=== PATIENT | female | born 1950 | race Caucasian/White ===

== ENCOUNTER 2017-03-28 01:58 | Inpatient (IN) | payer MEDICARE ==
[2017-03-24 08:47] VITALS: BP 136/74
[2017-03-24 09:56] LABS: BASO % 0.4 % (0.0-1.0); EOS # 0.1 10*3/uL (0.0-0.4); EOS % 0.7 % (1.0-4.0); HEMATOCRIT 41.4 % (37.0-47.0); HEMOGLOBIN 13.7 g/dl (12.0-16.0); LYMPH # 1.8 10*3/uL (1.3-4.4); LYMPH % 26.3 % (27.0-41.0); MEAN CELL VOLUME 96.3 fl (81.0-99.0); MEAN CORPUSCULAR HGB 31.9 pg (27.0-31.0); MEAN CORPUSCULAR HGB CONC 33.1 g/dl (33.0-37.0); MEAN PLATELET VOLUME 9.3 fl (9.6-12.3); MONO # 0.5 10*3/uL (0.1-1.0); MONO % 7.7 % (3.0-9.0); NEUT # 4.5 10*3/uL (2.3-7.9); NEUT % 64.6 % (47.0-73.0); PLATELET COUNT AUTOMATED 312 10*3/uL (130-400)
[~2017-03-28] VITALS: Ht 162.5 cm; Wt 76.8 kg
[2017-03-28] VITALS (11 sets, daily range): BP systolic 114–151; BP diastolic 66–83
--- NOTE | ~2017-03-28 | WRIGHTHP ---
[place], [place] PATIENT HISTORY AND PHYSICAL EXAM [id number] UNIT #: [id number] ROOM: DOCTOR: DENNYS BELTRAN MD BIRTHDATE: [birth year] DOS: 03/28/2017 HISTORY OF PRESENT ILLNESS: This is a 66-year-old white female who is a 2, para 1, AB 1, status post tubal ligation, who was seen on 03/14/2017 in kind referral from Dr. Jeffery West for uterine prolapse. The patient does have a number of issues with bowel function in discussing the situation with her, but her urinary function is okay. She over the past 3-4 months states that she has been having significant issues with sitting down and feels like she is squishing something and also something seems to protrude out with the bathroom functions as well. Her exam at that time was consistent with no significant uterine or bladder prolapse, but she had a very prominent large second degree rectocele and enterocele. I reviewed pessary with her and she refused and we also discussed observation. She also refused that and desired surgical correction. The risks, benefits, indications, potential complications and alternatives of an enterocele repair, posterior repair, right sacrospinous fixation and perineoplasty were reviewed with the patient, understanding stated and she did sign a consent. She understands fully that this corrective surgery may or may not improve her bowel function as she had described and complained of to her primary provider as well as myself. PAST MEDICAL HISTORY: Reveals 2 pregnancies, 1 vaginal delivery and 1 spontaneous AB. She states she has never had a colonoscopy. She has had the tubal ligation. Her most recent Pap was negative. She states a history of hypertension, but she states that she is taking no medications per se for this. SOCIAL HISTORY: She does smoke approximately one half to one pack per day. She does drink socially. ALLERGIES: She states an allergy to PENICILLIN and CODEINE. MEDICATIONS: She was taking hydrochlorothiazide, but she is no longer taking this. She does take vitamin D and calcium. REVIEW OF SYSTEMS: Otherwise is stable. FAMILY HISTORY: Reveals her father from an NV and from lung cancer. She states her sister has had an NV. PHYSICAL EXAMINATION: GENERAL: Reveals a pleasant white female. VITAL SIGNS: She is 5 feet and 4 inches, 162 pounds, BMI is 28, oxygen sat is normal and there is no history of sleep apnea. Her blood pressure this time was 130/84. HEENT: Stable. NECK: Stable. LUNGS: Stable. CARDIAC: Stable. BREASTS: Stable. ABDOMEN: Normal. EXTREMITIES: Grossly intact. [place], [place] PATIENT HISTORY AND PHYSICAL EXAM NAME: NINA VOGT UNIT #: [id number] ROOM: DOCTOR: DENNYS BELTRAN MD BIRTHDATE: [birth year] NEUROLOGIC: Grossly intact. GENITOURINARY: The external genitalia normal. Vagina has been described above, as has the cervix. The uterus is not enlarged and anteverted, anteflexed, mobile and nontender. Adnexa were negative. RECTAL: Negative. Stool Hematest negative. ASSESSMENT: The patient with symptomatic second degree rectocele/enterocele. PLAN: The patient will undergo posterior repair, enterocele repair, right sacrospinous fixation and perineoplasty on 03/28/2017. DENNYS BELTRAN MD CM:HISPHYS:PATIENT HISTORY AND PHYSICAL EXAMINATION 32 34 DENNYS BELTRAN MD 03/24/17 1336 interface
--- NOTE | ~2017-03-28 | O ---
[place], [place] OPERATIVE NOTE NAME: NINA VOGT UNIT #: [id number] ROOM: 511 DOCTOR: DENNYS BELTRAN MD BIRTHDATE: [birth year] DOS: 03/28/2017 PREOPERATIVE DIAGNOSES: Symptomatic second degree rectocele and enterocele as well as introital laxity. POSTOPERATIVE DIAGNOSES: Symptomatic second degree rectocele and enterocele as well as introital laxity. PROCEDURE: Posterior repair, enterocele repair, right sacrospinous fixation and perineoplasty. SURGEON: Dr. Dennys Beltran and Dr. Guzman. ANESTHESIA: General. ESTIMATED BLOOD LOSS: 50 to 75 mL. REPLACEMENTS: IV fluids, Ofirmev, Toradol, gentamicin and Cleocin. COMPLICATIONS: There were no complications. CONDITION: The patient's condition to recovery stable. OPERATIVE SUMMARY: The patient was taken to the operating room in supine position, general anesthesia, endotracheal intubation, lithotomy position, prepped and draped in routine manner. A Ardon catheter was placed to straight drain. Examination was consistent with the office exam, which revealed only minimal amount of anterior laxity and no uterine descensus, but a prominent second degree rectocele and enterocele with introital laxity. We then made a triangular shaped incision over the perineal area, removed the skin and then made an incision perpendicular to this in the posterior vagina up to a point very near the cervix. The posterior vaginal mucosa was dissected free from the fascia and the rectal and enterocele area, followed by dissecting over to the right ischial spine. At that point, the sacrospinous ligament was identified and a suture of 0 Ethibond was placed and then affixed to the top of the vagina bilaterally. We then obliterated the enterocele with several pursestring 2-0 Ethibond sutures. Once that was completed, we obliterated the rest of the enterocele and the rectocele with a series of interrupted 2-0 Vicryl sutures. Once this was completed, excess posterior vaginal mucosa was excised and then we closed the posterior vaginal incision with a running locking 2-0 Vicryl suture down to near the introitus before engaging our sacrospinous fixation suture and using a pulling it like a con we elevated the vagina very nicely. Once this was completed, we finished closing the posterior vagina with a running locking 2-0 Vicryl suture. We brought this down to near the introitus and then we closed the perineal defect in several layers with 2-0 Vicryl as one would close a small second-degree midline episiotomy, completing this suture by tying this to the vaginal suture as well. We then inspected for hemostasis intravaginally and noted good hemostasis and good support. We placed Premarin cream and then 2 inch iodoform packing. Once that was placed, we then checked the rectum and noted the rectum to be intact and the [place], [place] OPERATIVE NOTE NAME: NINA VOGT UNIT #: [id number] ROOM: [facility] DOCTOR: DENNYS BELTRAN MD BIRTHDATE: [birth year] sacrospinous fixation suture was easily palpated. The patient was then cleaned off, taken out of lithotomy position, awakened, extubated and transferred to recovery in stable condition, stable vital signs, good hemostasis, stable sponge and instrument count and good urine output. DENNYS BELTRAN MD CM:OPRECORD:OPERATIVE NOTE [id number] DENNYS BELTRAN MD 03/28/17 0915 interface
--- NOTE | ~2017-03-28 | DS ---
[place], [place] DISCHARGE SUMMARY NAME: NINA VOGT UNIT #: [id number] ROOM: 511 DOCTOR: DENNYS BELTRAN MD BIRTHDATE: [birth year] DOS: 03/29/2017 HOSPITAL COURSE: This patient was admitted to the hospital on March 28 as a postop patient status post a posterior repair, enterocele repair, right sacrospinous fixation and perineoplasty. The surgery was uneventful and the EBL was really quite minimal. The patient did have packing when she left the operating room as well as a Ardon catheter. The patient stated that she desired to be discharged the day of the surgery, but we did persuade her to go ahead and stay overnight and clearly she has done well by staying overnight and this morning. On rounds, her vital signs were stable. Her cardiac and chest exam were stable. Her abdomen was soft with good bowel sounds. She had no significant vaginal bleeding after the packing was removed. Her calves and IV site were stable. I had a thorough discussion with the patient in regard to the operative findings and the procedures performed. We also had an extensive discussion in regard to discharge instructions, in regard to follow up in 4-6 weeks, in regard to use of Percocet 5/325 one p.o. q. 4-6 hours p.r.n., in regard to anti-inflammatory agents on an as needed basis. We also stressed the level of activity, level of exertion as well as the prevention of constipation postoperatively. Finally, the patient will contact should she have any other complications that might have been outlined in the discharge instructions or any questions that perhaps had not been outlined in the discharge instructions, to check with the office in regard to other issues. The patient stated understanding to all the information provided and was discharged in satisfactory condition on 03/29/2017. DENNYS BELTRAN MD CM:DISCHARG 0 DENNYS BELTRAN MD 03/29/1709 interface
--- NOTE | 2017-03-28 10:00 | NUR ---
Discharge instructions reviewed with patient/family. Patient receptive and verbalizes understanding. Follow-up care arranged. Written instructions given to patient/family. KAROL GARZA
--- NOTE | 2017-03-28 10:12 | NUR ---
Time: 999 A 66 year old FEMALE admitted to under services of DR. DEVIN CASTRO,DENNYS. Pt. arrived via BED from [place]. Chief complaint: S/P POSTERIOR REPAIR. KAROL GARZA
[2017-03-29] VITALS: BP 126/58
[2017-03-29 08:00] VITALS: BP 158/90
--- NOTE | 2017-03-29 08:00 | NUR ---
[employer] Apprentice in to talk to patient. Patient states lives at HOME with HER BOYFRIEND. There are 13 steps in the home. Physician: DR ROBBIE FELDER Pharmacy: [facility] [place] Home health services: NONE Patient's level of ADLs: INDEPENDENT Patient has working utilities: YES DME: NONE Follow-up physician's appointment after d/c: PREFERS TO MAKE HER OWN APPT Does patient want to access PORTAL?: Discharge plan HOME. MICHAEL THOMAS
--- NOTE | 2017-03-29 08:11 | NUR ---
PT'S IV ACCESS REMOVED PER DR. WYATT ORDER. NO COMPLICATIONS AT THIS TIME. NO CONCERNS FROM THE PT.
--- NOTE | 2017-03-29 10:07 | NUR ---
Discharge instructions reviewed with patient/family. Patient receptive and verbalizes understanding. Follow-up care arranged. Written instructions given to patient/family. KAROL GARZA
== END 2017-03-29 10:07 | disposition home or self-care (01) | DRG 747 ==
LOC: SDC 01:58 → 5E 08:30 → SDC 03-31 11:00
PROVIDERS: ADMIT Obstetrics & Gynecology
PROC: 0USG0ZZ Reposition Vagina, Open Approach (ICD-10-PCS; principal; 2017-03-28)
PROC: 0UQF0ZZ Repair Cul-de-sac, Open Approach (ICD-10-PCS; principal; 2017-03-28)
PROC: 0WQN0ZZ Repair Female Perineum, Open Approach (ICD-10-PCS; principal; 2017-03-28)
PROC: 0JQC0ZZ Repair Pelvic Region Subcutaneous Tissue and Fascia, Open Approach (ICD-10-PCS; principal; 2017-03-28)
DX: N81.2 Incomplete uterovaginal prolapse (principal); F17.210 Nicotine dependence, cigarettes, uncomplicated; I10 Essential (primary) hypertension; Z98.51 Tubal ligation status; Z72.89 Other problems related to lifestyle; Z88.5 Allergy status to narcotic agent; Z88.0 Allergy status to penicillin; Z82.49 Family history of ischemic heart disease and other diseases of the circulatory system; Z80.1 Family history of malignant neoplasm of trachea, bronchus and lung